=== PATIENT | male | born 2000 | race Caucasian/White ===

== ENCOUNTER 2024-12-20 10:48 | Outpatient (CLI) | payer OTHER ==
--- NOTE | 2024-12-21 16:22 | CONSULTATION ---
DATE OF CONSULTATION: 12/20/2024 DICTATING PHYSICIAN: Emilie Paredes M.S., [facility] MODIFIED BARIUM SWALLOW STUDY REPORT REFERRING PHYSICIAN: Meggan Estrella MD HISTORY OF PRESENT ILLNESS: The patient is a 24-year-old male and consents to this evaluation. In history obtained from the patient and medical records, the patient reports inability to burp and difficulty swallowing pills. He notes that if he does not swallow his pill in the correct way that he feels as if his throat closes up and the pill becomes blocked. He notes that this has been going on for his entire life. He reports that his only significant medical history is pneumonia when he was 2-1/2 years old and he had to be admitted to the hospital. CURRENT DIET: In terms of caffeine, the patient has caffeine twice weekly in the form of Red Bull. In terms of tobacco products, he has 1 cigarette when he drinks, which can be up to 1-2 times a week. The patient consumes 1-2 beers 1-2 times weekly. He consumes chocolate once weekly and does not have dairy products very often. He is on a regular textured, thin liquid diet. MEDICATIONS: Vitamin B12 2500 mcg 1 tablet once daily orally, magnesium glycinate 133 mg 2 tablets once daily orally, vitamin C 1000 mg 1 tablet once daily orally, vitamin D3 125 mcg 1 capsule once daily orally, vitamin K2 180 mcg 1 tablet once daily orally, zinc acetate 30 mg 1 tablet once daily orally. PARAMETERS: The patient is seated in a lateral 90-degree view and administered the usual protocol of thin and nectar thick liquids, pureed and solid consistencies, as well as self-regulated boluses of thin liquids from a cup. RESULTS: The patient was easily able to transfer the bolus from the anterior to the posterior oral cavity. There did not appear to be any difficulty with strength or range of motion of the tongue. It was noted that for liquids, the patient demonstrated adequate lingual strength with no oral residue; however, for puree and solid consistencies, he was demonstrating a piecemeal swallow. This did not seem to be due to lingual strength, but rather a compensation due to the upper esophageal sphincter. He would swallow about half of the bolus at a time for these. In the pharyngeal stage of the swallow, tongue base retraction is within functional limits and swallow initiation is within functional limits. Elevation of the hyothyroid complex is accomplished with full range of motion. It was noted that the PES opening did not open with full range of motion, and so it appears that the patient has compensated by utilizing a piecemeal swallow for puree and solid consistency. At no time was the patient noted to penetrate or aspirate on any of the bolus sizes or consistencies. ANTERIOR, POSTERIOR VIEW: In the AP plane, the bolus split symmetrically between the pyriform sinuses and there was no proximal movement of the boluses noted. 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 The patient was noted to have decreased PES opening which prevented him from being able to swallow the entire bolus for puree and solid consistencies. It also appears that the cricopharyngeus muscle is not relaxing properly in order for the patient to be able to burp. DIAGNOSIS: R13.14, dysphagia, pharyngoesophageal phase, K22.2 esophageal obstruction PATIENT EDUCATION: Immediately following modified barium swallow study, the patient was able to view the results. He was educated on the Shaker exercise in order to strengthen the upper esophageal sphincter. He was provided a written handout for how to complete at home and indicated that he felt that he would be able to complete this exercise independently. RECOMMENDATIONS: * It is recommended that the patient complete the Shaker exercise 4 times weekly. * Should completion of this exercise not help with the patient's symptoms with difficulty swallowing the vitamins, it would be recommended that the patient be seen for a flexible nasopharyngoscopy in order to determine if he has retrograde cricopharyngeus dysfunction. Following that evaluation, he may benefit from an upper esophagoscopy or EMG-guided Botox injection. LONG-TERM GOALS: The patient will maintain adequate hydration/nutrition with optimum safety and efficiency of swallow function on p.o. intake without overt signs and symptoms of aspiration for the highest possible diet level. FUNCTIONAL ORAL INTAKE: The FOIS was administered to establish and document a change in the functional eating activities of this patient over time. This is a 7-point scale with 1 indicating no oral intake and totally tube dependent and 7 indicating total oral intake with no restrictions. This patient received a 7 indicating total oral intake with no restrictions. G-CODE: [id number]. Thank you very much for asking me to participate in the care of this kind patient. Should you have any questions regarding this evaluation or recommendations, please do not hesitate to contact me at [phone]. During this examination, 25.33 CAK mGy were utilized and 2:43 minutes of fluoroscopy time were utilized. Emilie Paredes M.S., [facility] TID: [id number] RECEIPT: [id number] APRIL/MEI MCCALL
== END 2024-12-20 23:59 | disposition home or self-care (01) ==
LOC: RAD 10:48
PROVIDERS: ATTEND Internal Medicine
DX: R13.14 Dysphagia, pharyngoesophageal phase (principal); G70.00 Myasthenia gravis without (acute) exacerbation; K22.2 Esophageal obstruction
CPT/HCPCS: 74230